=== PATIENT | female | born 1955 | race Caucasian/White ===

== ENCOUNTER 2022-08-22 18:32 | Outpatient (REF) | payer OTHER, SELFPAY ==
[2022-08-22 15:30] LABS: HCT 39.7 % (36.0-46.0); MCH 33.9 pg (27.0-33.0); MCHC 32.7 % (32.0-36.0); MCV 104 fL (80-95); MPV 11.5 fL (8.0-11.0); Platelet Count 217 10^3/uL (130-400); RBC 3.83 10^6/uL (3.93-5.22); RDW 11.3 % (11.7-14.6); RDW-SD 43.2 fL; WBC 5.11 10^3/uL (4.4-10.8)
[2022-08-22 15:44] LABS: ALT 41 U/L (14-59); AST 34 U/L (15-37); Albumin 3.8 g/dL (3.4-5.0); Alkaline Phosphatase 111 U/L (46-116); Anion Gap 5.1 mmol/L (3-11); BUN 15 mg/dL (7-18); Bilirubin, Total 0.5 mg/dL (0.2-1.0); CO2 30.9 mmol/L (21.0-32.0); CREATININE 0.7 mg/dL (0.55-1.02); Calcium 9.2 mg/dL (8.5-10.1); Calculated LDL 145 mg/dL (<100); Chloride 105 mmol/L (98-107); Cholesterol 242 mg/dL (<200); Estimated GFR 94.15 (mL/min/1.73m2); Glucose 89 mg/dL (74-106); HDL Cholesterol 91 mg/dL (40-60); Potassium 4.2 mmol/L (3.5-5.1); Sodium 141 mmol/L (136-145); Total Protein 6.5 g/dL (6.4-8.2); Triglyceride 34 mg/dL (<150)
[2022-08-22 17:21] LABS: Iron 77 ug/dL (50-170); Total Iron Binding Capacity 396 ug/dL (250-450); Transferrin Sat 19 % (15-50)
== END 2022-08-22 18:33 | disposition home or self-care (01) ==
LOC: NCHCN 18:32
PROVIDERS: Visit Provider Nurse Practitioner Family
DX: Z13.220 Encounter for screening for lipoid disorders (principal); E61.1 Iron deficiency; R51.9 Headache, unspecified
CPT/HCPCS: 80053; 80061; 85027; 83540; 83550

== ENCOUNTER 2022-10-09 15:21 | Inpatient (IN) | payer MEDICARE, OTHER, SELFPAY ==
[2022-10-09 15:20] VITALS: BP 115/60; PULSE 71; RESP 20; O2SAT 98
--- NOTE | 2022-10-09 15:30 | DI.RAD_ITS ---
Exam(s) XR CHEST 1V IN DI DEPT EXAM: XR CHEST 1V IN DI DEPT CLINICAL HISTORY: fall TECHNIQUE: 2D digital imaging was performed. COMPARISON: No exams were available for comparison FINDINGS: LUNGS: Clear. No pleural abnormality seen. HEART: Normal size. AORTA: Normal diameter. BONES: Unremarkable for age. Soft tissues: Unremarkable. IMPRESSION: No acute findings. DATA REPOSITORY: RADIATION DOSE DELIVERED:
--- NOTE | 2022-10-09 15:30 | DI.RAD_ITS ---
Exam(s) XR FEMUR RT XR HIP RT COMPLETE AP PELVIS EXAM: XR FEMUR RT CLINICAL HISTORY: fall, pain. TECHNIQUE: 2D digital imaging was performed. AP pelvis. AP and lateral views right hip and right f emur. COMPARISON: CR XR HIP RT COMPLETE AP PELVIS from 10/09/2022 FINDINGS: Subcapital fracture of the right femur with some impaction and angulation. No additional fractures i n the right femur or pelvis. Hip joint spaces are maintained. SI joints and pubic symphysis not wid ened. Sacrum obscured by overlying bowel gas and stool. IMPRESSION: Subcapital fracture of the right femur. DATA REPOSITORY: RADIATION DOSE DELIVERED:
--- NOTE | 2022-10-09 15:37 | W.ED.GENAD ---
Discharge Plan Disposition Patient Disposition: Admit to [facility] Condition: Stable Discharge Details Chief Complaint: Orthopedic Clinical Impression: Fracture of right hip Primary Care Provider: Unknown,Unknown ED Provider: Mack Devries Home Meds and New Rx's Prescriptions: No Action Heidi 30 mg Tablet 30 mg PO DAILY cholecalciferol (vitamin D3) [Vitamin D3] 25 mcg (1,000 unit) Capsule 50 mcg PO DAILY escitalopram oxalate 10 mg tablet 10 tab PO DAILY Medical Decision Making 67 yo female who denies chronic medical problems comes in with ems after a fall and right hip pain. She states she was feeling well today and was walking in her house and slipped on a wet area landing on her right hip. Denies preceding symptoms such as chest pain, dyspnea, lightheadedness, and denies hitting her head or loc from the fall. She had severe pain in the right hip and so ems was called. She arrives stable, caox4 speaking clearly. She has pain over the right lateral hip with no ability to move it due to pain. No tenderness of the knee, tib,fib, ankle or foot with intact distal sensation and pulses. Suspect hip fracture, will obtain screening labs, ekg and xrays to further evaluate. pt stable and xray confirms right hip fracture. Discussed with Dr. Cummings who accepts for admission Differential Diagnosis Differential Diagnosis: fracture, contusion Imaging Data Radiologic Study: Attestation: I personally reviewed and interpreted this imaging study as follows: Imaging: X-Ray Radiologist's impression: no acute findings on cxr Radiologic Study #2: Attestation: I personally reviewed and interpreted this imaging study as follows: Imaging: X-Ray Radiologist's impression: PROCEDURE INFORMATION: Exam: XR Right Hip Exam date and time: 10/09/2022 4:33 PM Age: 67 years old Clinical indication: Other: Fall pain TECHNIQUE: Imaging protocol: Radiologic exam of the Right hip. Views: 2 or 3 views hip with pelvis when performed. COMPARISON: No relevant prior studies available. FINDINGS: Bones/joints: There is a subcapital femoral neck fracture involving the right hip. Lateral femoral neck is impacted into the femoral head. Soft tissues: Unremarkable. IMPRESSION: There is a subcapital femoral neck fracture involving the right hip. Lateral femoral neck is impacted into the femoral head. Radiologic Study #3: Attestation: I personally reviewed and interpreted this imaging study as follows: Imaging: X-Ray Radiologist's impression: PROCEDURE INFORMATION: Exam: XR Right Femur Exam date and time: 10/09/2022 4:37 PM Age: 67 years old Clinical indication: Other: Fall pain TECHNIQUE: Imaging protocol: Radiologic exam of the Right femur. Views: 2 views. COMPARISON: CR XR HIP RT COMPLETE AP PELVIS 10/09/2022 4:33 PM FINDINGS: Bones/joints: Subcapital femoral neck fracture of the right hip is impacted and displaced. Soft tissues: Soft tissue swelling of the right hip IMPRESSION: Subcapital femoral neck fracture of the right hip is impacted and displaced. Lab Data Lab results reviewed: Yes I reviewed the patient's lab results. HPI General Mode of arrival: EMS. Date/Time Provider Initiated Documentation: 10/09/22 15:27. Limitations to Documentation: no limitations. Information obtained by: patient. History of Present Illness 67 year old F presents to the emergency department with the chief complaint of right hip pain, described as moderate, Quality is described as aching, Patient reports no radiation. Patient started experiencing this hour(s) (1) and it has been constant. Rest improves symptom(s), Movement worsens symptoms . Patient did receive the following treatments prior to arrival, none Related Data Home Medications Medication Instructions Recorded Confirmed cholecalciferol (vitamin D3) 25 50 mcg PO DAILY 10/09/22 10/09/22 mcg (1,000 unit) capsule (Vitamin D3) escitalopram oxalate 10 mg tablet 10 tab PO DAILY 10/09/22 10/09/22 fexofenadine 30 mg tablet 30 mg PO DAILY 10/09/22 10/09/22 Allergies Allergy/AdvReac Type Severity Reaction Status Date / Time No Known Allergies Allergy Unverified 10/09/22 16:23 General Stated Complaint: Orthopedic KYAW: 3 Review of Systems All systems reviewed & are unremarkable except as noted in HPI and below Constitutional Constitutional: Denies chills, Denies fever(s) and Denies weakness Eyes Eyes: Denies loss of vision ENT Ears, Nose, Mouth, and Throat: Denies change in voice Cardiovascular Cardiovascular: Denies chest pain and Denies dyspnea Respiratory Respiratory: Denies cough and Denies dyspnea Gastrointestinal Gastrointestinal: Denies abdominal pain, Denies nausea and Denies vomiting Integumentary/Breasts Skin/Breast: Denies rash Neurologic Neurologic: Denies loss of vision and Denies weakness PFSH All Active Problems (Updated 10/09/22 @ 17:21 by Mack Devries MD) Fracture of right hip (Acute) Social History Smoking/Tobacco Use Status: Former Tobacco Use Quit Date: 10/08/22 Smoking risk assessment performed?: Yes Drug use: Never Substance use type: does not use Do you feel safe at home: Yes Do you feel safe in your relationship?: Yes Exam Const General: no acute distress Orientation: alert HENMT Head: normal to inspection Ears: external ears normal General nose exam: external nose normal Mouth: moist mucous membranes Eyes General: appearance normal, both eyes and all related structures Neck Neck: normal visual inspection Resp Effort & Inspection: normal respiratory effort and able to speak in complete sentences Cardio Rate: regular rate GI Palpation: soft and nontender Skin General skin exam: no rashes or lesions noted Neuro General: patient alert and patient oriented x3 Extrem General: abnormal ROM Psych Mental Status: mental status grossly normal Course Vital Signs Vital signs: Vital Signs Pulse 71 10/09/22 15:20 Respiratory Rate 20 10/09/22 15:20 Blood Pressure 115/60 10/09/22 15:20 Pulse Oximetry 98 10/09/22 15:20 Pulse 71 10/09/22 15:20 Respiratory Rate 20 10/09/22 15:20 Blood Pressure 115/60 10/09/22 15:20 Blood Pressure Position Sitting 10/09/22 15:20 Pulse Oximetry 98 10/09/22 15:20 Oxygen Delivery Method Room Air 10/09/22 15:20 Oxygen Flow Rate 0 10/09/22 15:20 Pain Level 5 10/09/22 15:20
[2022-10-09 15:51] LABS: Source Nasal/Nares
[2022-10-09 16:13] LABS: Abs Immature Grans 0.02 10^3/uL (0.0-0.06); Absolute Basophil Count 0.04 10^3/uL (0.0-0.2); Absolute Lymphocyte Count 1.13 10^3/uL (1.2-3.4); Absolute Monocyte Count 0.35 10^3/uL (0.1-0.8); Absolute Neutrophil Count 4.88 10^3/uL (1.2-6.7); Basophils % 0.6; Eosinophils % 7.2; HGB 13.3 g/dL (11.2-15.7); Immature Grans % 0.3; Lymphocytes % 16.3; MCH 33.1 pg (27.0-33.0); MCHC 33.3 % (32.0-36.0); MCV 100 fL (80-95); MPV 10.5 fL (8.0-11.0); Monocytes % 5.1; Neutrophils % 70.5; Platelet Count 222 10^3/uL (130-400); RBC 4.02 10^6/uL (3.93-5.22); RDW 11.9 % (11.7-14.6); RDW-SD 43.3 fL; WBC 6.92 10^3/uL (4.4-10.8)
[2022-10-09] MEDS: HYDROmorphone 2 MG/ML SYR 1 MG IVP ×2 (16:13→22:04)
[2022-10-09 16:23] LABS: COVID-19 PCR Negative (Negative)
[2022-10-09 16:32] LABS: Magnesium 2.3 mg/dL (1.8-2.4)
[2022-10-09 16:35] LABS: ALT 34 U/L (14-59); AST 27 U/L (15-37); Alkaline Phosphatase 117 U/L (46-116); Anion Gap 7.1 mmol/L (3-11); BUN 17 mg/dL (7-18); Bilirubin, Total 0.5 mg/dL (0.2-1.0); CO2 27.9 mmol/L (21.0-32.0); CREATININE 0.7 mg/dL (0.55-1.02); Chloride 104 mmol/L (98-107); Estimated GFR 94.15 (mL/min/1.73m2); Glucose 102 mg/dL (74-106); Potassium 4.1 mmol/L (3.5-5.1); Sodium 139 mmol/L (136-145); Troponin I < 50 ng/L (<or=60)
--- NOTE | 2022-10-09 17:01 | DI.VRAD_ITS ---
PROCEDURE INFORMATION: Exam: XR Right Hip Exam date and time: 10/09/2022 4:33 PM Age: 67 years old Clinical indication: Other: Fall pain TECHNIQUE: Imaging protocol: Radiologic exam of the Right hip. Views: 2 or 3 views hip with pelvis when performed. COMPARISON: No relevant prior studies available. FINDINGS: Bones/joints: There is a subcapital femoral neck fracture involving the right hip. Lateral femoral neck is impacted into the femoral head. Soft tissues: Unremarkable. IMPRESSION: There is a subcapital femoral neck fracture involving the right hip. Lateral femoral neck is impacted into the femoral head. Dictated and Authenticated by: Shar Kaiser MD. Ordering:JERAMY Giron MD
--- NOTE | 2022-10-09 17:01 | DI.VRAD_ITS ---
PROCEDURE INFORMATION: Exam: XR Chest Exam date and time: 10/09/2022 4:51 PM Age: 67 years old Clinical indication: Other: Fall pain TECHNIQUE: Imaging protocol: Radiologic exam of the chest. Views: 1 view. COMPARISON: No relevant prior studies available. FINDINGS: Tubes, catheters and devices: Surgical device in the right humeral head Lungs: Unremarkable. No consolidation. Pleural spaces: Unremarkable. No pleural effusion. No pneumothorax. Heart/Mediastinum: Unremarkable. No cardiomegaly. Bones/joints: Unremarkable. IMPRESSION: No acute process Dictated and Authenticated by: Shar Kaiser MD. Ordering:JERAMY Giron MD
--- NOTE | 2022-10-09 17:02 | DI.VRAD_ITS ---
PROCEDURE INFORMATION: Exam: XR Right Femur Exam date and time: 10/09/2022 4:37 PM Age: 67 years old Clinical indication: Other: Fall pain TECHNIQUE: Imaging protocol: Radiologic exam of the Right femur. Views: 2 views. COMPARISON: CR XR HIP RT COMPLETE AP PELVIS 10/09/2022 4:33 PM FINDINGS: Bones/joints: Subcapital femoral neck fracture of the right hip is impacted and displaced. Soft tissues: Soft tissue swelling of the right hip IMPRESSION: Subcapital femoral neck fracture of the right hip is impacted and displaced. Dictated and Authenticated by: Shar Kaiser MD. Ordering:JERAMY Giron MD
[2022-10-09] MEDS: Ketorolac 15 MG/ML VIAL IVP ×2 (18:14→23:18)
[2022-10-09 18:16] VITALS: BP 100/56; PULSE 61; RESP 16; O2SAT 97
[2022-10-09 18:35] VITALS: BP 100/52; PULSE 69; O2SAT 97
[2022-10-09 18:45] VITALS: TEMP 37.3
[2022-10-09] MEDS: oxyCODONE 5 MG TAB PO (18:58)
[2022-10-10] VITALS (15 sets, daily range): BP systolic 79–100; BP diastolic 45–82; PULSE 55–79; RESP 12–19; TEMP 36.3–37.6; O2SAT 92–100; BMI 19.7
[2022-10-10] MEDS: HYDROmorphone 2 MG/ML SYR 1 MG IVP (01:17)
--- NOTE | 2022-10-10 06:45 | W.ORTHOCONSU ---
Date of service: 10/10/22 Time of Service: 06:35 History of Present Illness History of Present Illness Chief Complaint: Right Hip Pain Narrative: Desirae is a 67-year-old active female who slipped on a wet floor at home falling onto her right side. She had immediate pain was unable to ambulate. She is brought to the emergency department and diagnosed with a displaced subcapital femoral neck fracture. I was called in consultation. Given her active lifestyle I recommend operative fixation she was admitted to the medical surgical floor for pain control overnight with operative fixation in the morning. She currently has pain with motion. In her current position she is relatively comfortable. She has required pain medication overnight. She did have some cramping early on but this has improved. She has been able to use the bedpan. She denies any preceding lightheadedness, dizziness, or syncope. She has no active cardiac or pulmonary medical history. Consults Consult date: 10/09/22 Requesting physician: Mack Devries Consult Reason Right hip fracture Assessment and Plan Assessment and plan (1) Subcapital fracture of neck of right femur: Status: Acute Assessment and plan: Desirae is a 67-year-old active female who suffered a fall onto the right side resulting in a displaced subcapital femoral neck fracture. Given her active lifestyle and young age I recommend we proceed with hip replacement. This would treat the fracture would also allow immediate mobilization. Current literature would support this treatment versus reduction and internal fixation or other arthroplasty. I had a long discussion in regards to surgical replacement of the hip. I also explained the necessary time for rehabilitation following the procedure. Furthermore, I went over in detail the possible complications of hip replacement. These include but are not limited to bleeding, infection, pain, stiffness, weakness, damage to nerves (especially the lateral femoral cutaneous nerve), damage to vessels, damage to muscle and tendon, fracture, leg length inequality, wound healing complications, instability, dislocation, and blood clot. Questions were answered. After a review of the presented information and risks, Desirae desired to proceed. She will remain NPO. Ketorolac, hydromorphone, and oxycodone for pain relief. We will proceed with mobilization after the surgery with hopeful discharge to home later today or tomorrow. Review of Systems All systems reviewed & are unremarkable except as noted in HPI and below PFSH All Active Problems (Updated 10/10/22 @ 07:51 by Adam Cummings MD) Subcapital fracture of neck of right femur (Acute) Social History Smoking/Tobacco Use Status: Former Tobacco Use Quit Date: 10/08/22 Smoking risk assessment performed?: Yes Drug use: Never Substance use type: does not use Do you feel safe at home: Yes Do you feel safe in your relationship?: Yes Exam Narrative Exam Narrative: Sitting up in the hospital bed. No acute distress. Alert and orient x3. Evaluation of the right lower extremity shows mild external rotation of the right leg. There is some swelling seen about the right thigh. No ecchymosis. No breaks in the skin. Sensation intact light touch of the deep and superficial peroneal nerve and tibial nerve. She is able to actively extend and flex the toe as well as the ankle. Further testing was not performed. Per Dr. Devries in the emergency department her lungs are clear to auscultation bilaterally and her heart rate and rhythm is regular Results Last Vital Signs Temp 37.3 C 10/09/22 18:45 Pulse 69 10/09/22 18:35 Resp 16 10/09/22 18:16 BP 100/52 L 10/09/22 18:35 Pulse Ox 97 10/09/22 18:35 Labs Result diagrams: 10/09/22 16:05 10/09/22 16:05 Labs: Laboratory Results - last 24 hr 10/09/22 10/09/22 10/09/22 15:43 16:05 16:05 WBC RBC Hgb Hct MCV MCH MCHC RDW Plt Count MPV Immature Gran % Neutrophils % Lymphocytes % Monocytes % Eosinophils % Basophils % Nucleated RBC % Absolute Neutrophils Absolute Lymphocytes Absolute Monocytes Absolute Eosinophils Absolute Basophils Sodium 139 Potassium 4.1 Chloride 104 Carbon Dioxide 27.9 Anion Gap 7.1 BUN 17 Creatinine 0.7 Est GFR (CKD-EPI 2020) 94.15 Glucose 102 Calcium 9.0 Magnesium 2.3 Total Bilirubin 0.5 AST 27 ALT 34 Alkaline Phosphatase 117 H Troponin I < 50 Total Protein 7.0 Albumin 4.0 COVID-19 Source Nasal/Nares SARS-CoV-2 (PCR) Negative Patient ABO/Rh Antibody Screen 10/09/22 10/09/22 16:05 16:05 WBC 6.92 RBC 4.02 Hgb 13.3 Hct 40.0 MCV 100 H MCH 33.1 H MCHC 33.3 RDW 11.9 Plt Count 222 MPV 10.5 Immature Gran % 0.3 Neutrophils % 70.5 Lymphocytes % 16.3 Monocytes % 5.1 Eosinophils % 7.2 Basophils % 0.6 Nucleated RBC % 0.0 Absolute Neutrophils 4.88 Absolute Lymphocytes 1.13 L Absolute Monocytes 0.35 Absolute Eosinophils 0.50 Absolute Basophils 0.04 Sodium Potassium Chloride Carbon Dioxide Anion Gap BUN Creatinine Est GFR (CKD-EPI 2020) Glucose Calcium Magnesium Total Bilirubin AST ALT Alkaline Phosphatase Troponin I Total Protein Albumin COVID-19 Source SARS-CoV-2 (PCR) Patient ABO/Rh O Positive Antibody Screen NEGATIVE Imaging Imaging Studies: X-ray of the right hip and pelvis shows a displaced subcapital femoral neck fracture. There is some shortening, valgus orientation and posterior displacement. No other suspicious lesions are identified.
[2022-10-10] MEDS: Ketorolac 15 MG/ML VIAL IVP ×2 (07:32→17:31)
--- NOTE | 2022-10-10 08:46 | PDOC.CMIN ---
- If Service Date Differs Date of service: 10/10/22 Time of Service: 08:47 Care Management Initial Assess REASON FOR HOSPITALIZATION:: Subcapital fracture of neck of right femur PAST MEDICAL HISTORY/PAST SURGICAL HISTORY:: All Active Problems (Updated 10/09/22 @ 17:21 by Mack Devries MD). Fracture of right hip (Acute) ADVANCE DIRECTIVES:: None on file at [facility] Has patient been provided with info about the portal/API?: Yes Did the patient sign up for the portal?: No CODE STATUS:: Full Code INSURANCE COVERAGE / FINANCIAL ISSUES:: [employer]. CMR/[employer] POTENTIAL DISCHARGE NEEDS:: Follow up appointment with PCP, ortho and discharge plan of care. PATIENT/FAMILY EDUCATION NEEDS:: Review discharge instructions, limitations, medications and plan to follow up with community providers. Discuss ask me three and goals of self care. TRANSPORTATION:: Via private vehicle with . PLAN:: Anticipate Desirae will discharge home via private vehicle with family when medically ready per Ortho. She will follow up with community providers and discharge plan of care as prescribed.
--- NOTE | 2022-10-10 09:59 | ANES.PREOP_ITS ---
General Info Date of Service Date Performed: 10/10/22 Height: 5 ft 10 in Weight: 62.4 kg Body Mass Index (BMI): 19.7 Surgical Procedure: Operation Date: 10/10/22 11:20 Proposed Procedure Side Surgeon p Hip Total Hip Anterior, Bimentum Right Adam Cummings MD Meds Allergies and Home Medications Allergies Allergy/AdvReac Type Severity Reaction Status Date / Time No Known Allergies Allergy Unverified 10/09/22 16:23 Home Medication Medication Instructions Recorded cholecalciferol (vitamin D3) 25 50 mcg PO DAILY 10/09/22 mcg (1,000 unit) capsule (Vitamin D3) escitalopram oxalate 10 mg tablet 10 tab PO DAILY 10/09/22 fexofenadine 30 mg tablet 30 mg PO DAILY 10/09/22 Current Visit Medications: Current Medications Generic Name Dose Route Start Last Admin Trade Name Freq PRN Reason Stop Dose Admin Acetaminophen 1,000 mg 10/09/22 17:24 Acetaminophen 500 Mg Tab PO Q6H PRN PRN Cyclobenzaprine HCl 10 mg 10/09/22 20:04 Cyclobenzaprine 10 Mg Tab PO TID PRN PRN Escitalopram Oxalate 10 mg 10/10/22 08:30 10/10/22 08:57 Escitalopram 10 Mg Tab PO Not Given DAILY FRANCISCO Hydromorphone HCl 1 mg 10/09/22 17:29 10/10/22 01:17 Hydromorphone 2 Mg/Ml Syr IVP 1 mg Q2H PRN Administration Ondansetron HCl 4 mg/ Sodium 52 mls @ 200 mls/hr 10/09/22 17:24 Chloride IVPB Q6H PRN PRN Ringer's Solution 1,000 mls @ 80 mls/hr 10/10/22 07:30 IV INFUSION FRANCISCO Cefazolin Sodium/Dextrose 2 gm in 50 mls @ 100 mls/hr 10/10/22 07:30 Ancef Duplex IVPB 10/10/22 16:00 PREOP FRANCISCO Tranexamic Acid 1,000 mg/ 60 mls @ 360 mls/hr 10/10/22 07:30 Sodium Chloride IVPB 10/10/22 18:00 PREOP FRANCISCO IV Miscellaneous Supplies 1 each 10/09/22 15:45 Iv Access IV DIRECTED FRANCISCO Ketorolac Tromethamine 15 mg 10/09/22 18:00 10/10/22 07:32 Ketorolac 15 Mg/Ml Vial IVP 10/14/22 17:59 15 mg Q6H FRANCISCO Administration Oxycodone HCl 0 mg 10/09/22 17:24 10/09/22 18:58 Oxycodone 5 Mg Tab PO 5 mg Q3H PRN PRN Administration Pain Patient's Own 1 each 10/10/22 08:30 10/10/22 08:57 Medication ( PO Not Given Fexofenadine 30 Mg DAILY FRANCISCO Tablet) Sodium Chloride 0 ml 10/09/22 15:36 Normal Saline Flush 10 Ml Syr IVP PRN PRN PFSH Active Problems Active Problems: Problem Status Onset Code Subcapital fracture of neck of right femur S72.011A Tobacco Smoking/Tobacco Use Status: Former Tobacco Use Substance Use Substance use: Never Substance use type: does not use Vital Signs and Lab Results Vital Signs Most Recent Vital Signs in EMR: Most Recent Vital Signs Temp Pulse Resp BP Pulse Ox 37.3 C 64 16 88/51 L 100 10/09/22 18:45 10/10/22 08:52 10/09/22 18:16 10/10/22 08:52 10/10/22 08:52 Lab Results Result Diagrams: 10/09/22 16:05 10/09/22 16:05 Blood Type / Crossmatch: Patient ABO/Rh O Positive 10/09/22 Antibody Screen NEGATIVE 10/09/22 Complete Blood Count: White Blood Count 6.92 10^3/uL (4.4-10.8) 10/09/22 16:05 Red Blood Count 4.02 10^6/uL (3.93-5.22) 10/09/22 16:05 Hemoglobin 13.3 g/dL (11.2-15.7) 10/09/22 16:05 Hematocrit 40.0 % (36.0-46.0) 10/09/22 16:05 Platelet Count 222 10^3/uL (130-400) 10/09/22 16:05 Complete Metabolic Panel: Sodium 139 mmol/L (136-145) 10/09/22 16:05 Potassium 4.1 mmol/L (3.5-5.1) 10/09/22 16:05 Chloride 104 mmol/L (98-107) 10/09/22 16:05 Carbon Dioxide 27.9 mmol/L (21.0-32.0) 10/09/22 16:05 BUN 17 mg/dL (7-18) 10/09/22 16:05 Creatinine 0.7 mg/dL (0.55-1.02) 10/09/22 16:05 Est GFR (CKD-EPI 2020) 94.15 (mL/min/1.73m2) 10/09/22 16:05 Magnesium 2.3 mg/dL (1.8-2.4) 10/09/22 16:05 Calcium 9.0 mg/dL (8.5-10.1) 10/09/22 16:05 Albumin 4.0 g/dL (3.4-5.0) 10/09/22 16:05 Glucose 102 mg/dL (74-106) 10/09/22 16:05 Liver Function Panel: Alanine Aminotransferase (ALT/SGPT) 34 U/L (14-59) 10/09/22 16: 05 Aspartate Amino Transf (AST/SGOT) 27 U/L (15-37) 10/09/22 16:05 Coagulation Panel: No Data to Display Cardiac Panel: Troponin I < 50 ng/L (<or=60) 10/09/22 Arterial Blood Gas: No Data to Display Venous Blood Gas: No Data to Display Pancreas Panel: No Data to Display Thyroid Panel: No Data to Display Infectious Disease: Coronavirus (COVID-19)(PCR) Negative (Negative) 10/09/22 15:43 Coronavirus 2019 Source Nasal/Nares 10/09/22 15:43 Blood Cultures: No Data to Display Toxicology Panel: No Data to Display Anesthesia Assessment and Plan Anesthesia History Personal History: No History of Anesthesia Complications Family History: No Family History of Anesthesia Complications Exercise Tolerance Exercise Tolerance: Metabolic Equivalents>4 Pertinent Negatives Pertinent Negatives: No Symptoms of GERD, No Major Cardiovascular Symptoms or Complaints and Other (Hx of MICA) Cardiac & Pulmonary Exam Cardiac Exam: Normal S1/S2 Heart Sounds Pulmonary Exam: Clear Bilateral Breath Sounds Implantable Cardiac Device Does patient have a Pacemaker or an ICD?: No Airway Exam Known Difficult Airway: No Mallampati Class: 2 Mouth Opening: Normal (> 3cm) Thyromental Distance: Greater than 3 cm Neck Range of Motion: Full ROM Neck Circumference: Normal Teeth Condition: Normal Dentition ASA Classification ASA Score: ASA 2 Emergency Case?: No NPO Status NPO Status: NPO Clears >2 hours, Solids >8 hours Anesthesia Plan Resuscitation Status: Full Code Anesthesia Technique: General Anesthesia Airway Planned: Endotracheal Tube Monitors Used: Standard Monitors
[2022-10-10] MEDS: Lactated Ringers 1,000 ML 80 ML IV (11:40)
[2022-10-10] MEDS: ceFAZolin 2 GM/50 ML BAG IVPB (11:52)
--- NOTE | 2022-10-10 13:18 | DI.RAD_ITS ---
Exam(s) XR HIP RT IN OR EXAM: XR HIP RT IN OR CLINICAL HISTORY: FEMORAL NECK FRACTURE TECHNIQUE: 2D and realtime digital imaging was performed. CONTRAST MATERIAL: Refer to procedure report. COMPARISON: No exams were available for comparison FINDINGS: Fluoroscopy was provided for Dr. Cummings during the performance of a right total hip replacement. Please refer to the procedure report for complete details. Ka,r=5.1 mGy IMPRESSION: RADIATION DOSE DELIVERED:
--- NOTE | 2022-10-10 13:58 | DSE_ITS ---
Date of service: 10/10/22 Time of Service: 17:21 DS: Diagnosis Discharge Diagnosis (1) Subcapital fracture of neck of right femur: Status: Acute Discharge Plan Disposition Patient Disposition: Home Condition: Good Discharge Details Reason For Visit: Right Femoral Neck Fracture Admit Date/Time: 10/09/22 17:24 Admit Provider: Adam Cummings Attending Provider: Adam Cummings Primary Care Provider: Unknown,Unknown Hospital Course Hospital Course: Desirae was admitted to the med/surg floor for pain control and preoperative management on HD#1. On HD#2, she was taken to the operating room for a total hip arthroplasty for femoral neck fracture. Patient went back to medical/surgical floor following the procedure. The surgery was tolerated well without any notable medical, surgical, or anesthetic complications. Mobilization began postoperatively. She was voiding spontaneously. Vitals were stable. Physical therapy worked with the patient and was cleared for discharge home. No acute medical issues. Pain was controlled on oral regimen. Home Meds and New Rx's Prescriptions: New acetaminophen 500 mg tablet 500 mg PO Q6H PRN (Reason: pain) Qty: 60 2RF aspirin 81 mg tablet,delayed release (DR/EC) 81 mg PO BID 30 Days Qty: 60 0RF celecoxib [Celebrex] 200 mg capsule 200 mg PO BID Qty: 30 0RF docusate sodium [Colace] 100 mg capsule 100 mg PO BID Qty: 30 0RF pantoprazole 40 mg tablet,delayed release (DR/EC) 40 mg PO DAILY 14 Days Qty: 14 0RF dexamethasone 4 mg tablet 4 mg PO DAILY Qty: 2 0RF Rx Instructions: Take one tablet once daily for two days oxycodone 5 mg tablet 5 mg PO Q6H PRN (Reason: severe post-operative pain) Qty: 12 0RF Rx Instructions: Take one tablet up to every 6 hours as needed for severe pain Continued fexofenadine 30 mg Tablet 30 mg PO DAILY cholecalciferol (vitamin D3) [Vitamin D3] 25 mcg (1,000 unit) Capsule 50 mcg PO DAILY escitalopram oxalate 10 mg tablet 10 tab PO DAILY Discharge Instructions Instructions: Total Hip Discharge Instructions Additional Instructions: Total Hip Discharge Instructions Activity: The most important activity is to walk. You should try to take short walks a few times a day. You have no restrictions on movement or positioning, but do not try to force what you do. You will find some stiffness and weakness with hip flexion (lifting your knee). Do not try to strengthen this too early, continue to practice walking and stairs and this will come. - Outpatient physical therapy can be helpful to help return you to a normal gait and improve your flexibility and strength. This can start around 2 weeks. For some patients, it?s not necessary. Usually this is determined at the time of discharge or at the first post-operative visit. - You should wear the ANGELLA hose on both legs for 2 weeks. Dressing: Keep the surgical dressing in place for at least one week. After the first week it may be removed and replace with light gauze and tape or nothing. It may get wet after 3 days but avoid soaking the dressing. If it gets wet, just lightly pat dry. It is important to always keep some gauze between skin folds, especially when you are sitting. Spend some time with the wound exposed when you are lying flat as the incision does wrinkle onto itself. Medications: - You should take Tylenol and an anti-inflammatory Celebrex as your primary pain control medications. If the Celebrex is too expensive or not covered, please call the office for another alternative (Advil/Ibuprofen or Naproxen/Aleve). - You have been prescribed a stronger pain medication Oxycodone for breakthrough pain, take as needed as prescribed. - You have also been prescribed a stomach acid reduction agent Pantoprozole to help reduce stomach acid and reflux. - You have also been prescribed Decadron to help with post-operative nausea and pain. You will take this for two days starting tomorrow. - You will be taking Aspirin 81mg twice a day for DVT prevention unless instructed otherwise. - If you have constipation you should take Colace (which has been prescribed) or Miralax (which is available [id number]). It takes most people 3-4 days to have a bowel movement. Follow-up: 2 weeks If you have any acute concerns or questions, please do not hesitate to contact the office at [phone]. You may contact Dr. Cummings with any questions after hours through the hospital at [phone] or on his cell phone at [phone]. Stand Alone Forms: Nursing Discharge Form Referrals: Adam Cummings MD [ [facility] STAFF PHYSICIAN] - 10/23/22 2:45 pm Activity:: Activity as Tolerated Equipment/Supplies:: No Equipment Needed Diet:: As Tolerated Discharge Orders Discharge Orders: Discharge Order (Routine); Ordered 10/10/22 Ordered By: Adam Cummings DS: Summary Time Spent with Patient providing and/or coordinating discharge services: Less than 30 minutes Status at Discharge Functional status at discharge: uses cane/walker Overall status at discharge: patient is progressing back to baseline Mental Status: mental status grossly normal Speech and Movement: speech and movement normal Mood: congruent mood Affect: normal affect Exam Narrative Exam Narrative: Sitting up on the edge of the bed. RLE is normally positioned. Dressing c/d/i. +ADF/APF/EHL/FHL. SILT DP/SP/Tib. Psych Mental Status: mental status grossly normal Speech and Movement: speech and movement normal Mood: congruent mood Affect: normal affect DS: Data Vitals/I&O Vitals and I&O: Vital Signs Temperature 99.1 F 10/09/22 18:45 Temperature Source Temporal Artery Scan 10/09/22 18:45 Pulse 64 10/10/22 08:52 Pulse Rhythm Regular 10/10/22 08:30 Respiratory Rate 16 10/09/22 18:16 Respiratory Effort Non-Labored 10/10/22 08:30 Respiratory Depth Normal 10/10/22 08:30 Respiratory Pattern Normal 10/10/22 08:30 Blood Pressure 88/51 L 10/10/22 08:52 Blood Pressure Mean 61 10/10/22 08:52 Blood Pressure Position Supine 10/09/22 18:45 Pulse Oximetry 100 10/10/22 08:52 Oxygen Delivery Method Room Air 10/09/22 18:45 Oxygen Flow Rate 0 10/09/22 18:45 Pain Level 3 10/10/22 08:30 Intake & Output 10/09/22 10/10/22 10/10/22 23:59 11:59 23:59 Intake Total 510 / 520 Output Total 1075 / 1475 400 / 1475 Balance -1065 / -955 110 / -955 Weight 137 lb 9.095 oz 137 lb 9.095 oz Intake: IV 510 / 520 Output: Urine 1075 / 1075 Estimated Blood Loss 400 / 400 Other: Urine Color Yellow Urine Appearance Clear Urine Odor None Comment STRAIGHT CATH PRIOR TO SURGERY Voiding Methods Bedpan Data Completed and Pending Labs on day of discharge: Labs from last 24 hours 10/09/22 10/09/22 10/09/22 16:05 16:05 16:05 WBC 6.92 RBC 4.02 Hgb 13.3 Hct 40.0 MCV 100 H MCH 33.1 H MCHC 33.3 RDW 11.9 Plt Count 222 MPV 10.5 Immature Gran % 0.3 Neutrophils % 70.5 Lymphocytes % 16.3 Monocytes % 5.1 Eosinophils % 7.2 Basophils % 0.6 Nucleated RBC % 0.0 Absolute Neutrophils 4.88 Absolute Lymphocytes 1.13 L Absolute Monocytes 0.35 Absolute Eosinophils 0.50 Absolute Basophils 0.04 Sodium Potassium Chloride Carbon Dioxide Anion Gap BUN Creatinine Est GFR (CKD-EPI 2020) Glucose Calcium Magnesium 2.3 Total Bilirubin AST ALT Alkaline Phosphatase Troponin I Total Protein Albumin COVID-19 Source SARS-CoV-2 (PCR) Patient ABO/Rh O Positive Antibody Screen NEGATIVE 10/09/22 10/09/22 16:05 15:43 WBC RBC Hgb Hct MCV MCH MCHC RDW Plt Count MPV Immature Gran % Neutrophils % Lymphocytes % Monocytes % Eosinophils % Basophils % Nucleated RBC % Absolute Neutrophils Absolute Lymphocytes Absolute Monocytes Absolute Eosinophils Absolute Basophils Sodium 139 Potassium 4.1 Chloride 104 Carbon Dioxide 27.9 Anion Gap 7.1 BUN 17 Creatinine 0.7 Est GFR (CKD-EPI 2020) 94.15 Glucose 102 Calcium 9.0 Magnesium Total Bilirubin 0.5 AST 27 ALT 34 Alkaline Phosphatase 117 H Troponin I < 50 Total Protein 7.0 Albumin 4.0 COVID-19 Source Nasal/Nares SARS-CoV-2 (PCR) Negative Patient ABO/Rh Antibody Screen [facility] All Active Problems Subcapital fracture of neck of right femur (Acute) Social History Smoking/Tobacco Use Status: Former Tobacco Use Quit Date: 10/08/22 Smoking risk assessment performed?: Yes Drug use: Never Substance use type: does not use Do you feel safe at home: Yes Do you feel safe in your relationship?: Yes Time Spent with Patient Time Spent with Patient: <45 minutes Time was spent: preparing to see the patient(eg.review tests), counseling the patient and care coordination
--- NOTE | 2022-10-10 14:09 | PDOC.CMDIS ---
- If Service Date Differs Date of service: 10/10/22 Time of Service: 14:09 LACE Index Scoring Tool - Questions: Length of Stay (in days): 1 Acuity (Admit via E.D.?): Yes E.D. Visits: 1 - Answers: Total Score: 5 Risk of Readmission: Low Risk Care Management Discharge Reason for Hospitalization: Right Femoral Neck Fracture Discharge Plan: Desirae is discharged home via private vehicle with family. She will follow up with her community providers and discharge plan of care as precribed. New RX's are transmitted to [place]. Dr. Cummings will call Desirae to schedule a follow up appointment, No [facility] services are indicated at the time of discharge. Patient/Family Education Needs: Review discharge instructions, limitations, medications and plan to follow up with community providers. Discuss ask me three and goals of self care. Services Needed at Discharge: Outpatient Therapy
[2022-10-10] MEDS: HYDROmorphone 2 MG/ML SYR IVP (14:39)
[2022-10-10] MEDS: Normal Saline Flush 10 ML SYR IVP ×2 (14:39→17:32)
--- NOTE | 2022-10-10 15:11 | W.ANESPOSTOP ---
Postoperative Evaluation Date, Time and Location Date Performed: 10/10/22 Time Performed: 15:11 Patient Location: PACU Vital Signs Most Recent Imported Vital Signs: Most Recent Vital Signs Temp Pulse Resp BP Pulse Ox 36.5 C 56 L 15 93/45 L 97 10/10/22 15:05 10/10/22 15:05 10/10/22 15:05 10/10/22 15:05 10/10/22 15:05 Pain Score Most Recent Pain Score: Most Recent Pain Score Pain Level [Right Hip Bone] 3 10/10/22 08:30 Pain Level 4 10/10/22 15:05 Assessment Mental Status: Awake (Alert & Oriented to Patient Baseline) Airway and Respiratory Function: Patent airway with normal (patient baseline) respiratory exam Cardiovascular Function: Hemodynamically Stable Hydration Status: Adequately Hydrated Nausea & Vomiting: No Nausea or Vomiting Pain: Pain is tolerable per patient Peripheral Nerve Block: Patient did not receive a nerve block
[2022-10-10] MEDS: oxyCODONE 5 MG TAB PO (15:39)
--- NOTE | 2022-10-10 15:50 | ROE_ITS ---
Date of service: 10/10/22 Time of Service: 13:40 Operative Note Operative Note DATE OF PROCEDURE: 10/10/22 PRE-OP DIAGNOSIS: Right Femoral Neck Fracture POST-OP DIAGNOSIS: same PROCEDURE: Right Anterior Total Hip Arthroplasty with Intraoperative Navigation and dual mobility articulation SURGEON: Adam Cummings FORGER HELPER: Enid Castle ANESTHESIA TYPE: General LMA/ETT Refer to Anesthesia Record ESTIMATED BLOOD LOSS: 400 PATHOLOGY: none sent TOURNIQUET TIME: 0 COMPLICATIONS: None Patient was transported to: PACU Patient's condition: stable Implants: 1. Depuy Bimentum Dual Mobility Acetabular Component, 51mm 2. Depuy Bimentum Dual Mobility Liner, [id number] 3. Depuy Corail Standard Collared Femoral Stem, Size 13 4. Depuy Altrx Ceramic Femoral Head, Size 28+5mm Indications: I have seen Desirae after a fall onto the right hip which resulted in a displaced subcapital femoral neck fracture. Given the displacement and her active lifestyle and young age I offered a hip replacement. I explained the risks of the procedure to include, but not limited to, bleeding, infection, pain, stiffness, fracture, damage to nerves and vessels, damage to muscles and tendons, loosening, instability, leg length inequality, need for repeat procedure, blood clot and cardiopulmonary demise. Despite these risks, Desirae elected to proceed. Findings: There is a mildly comminuted and displaced fracture about the femoral neck. A dual mobility cementless hip replacement was performed. Procedure Description: Desirae was greeted in the preoperative holding area where the correct side was identified and marked. The consent was reviewed with the patient and signed. The history and physical was updated. All questions were answered. She was taken back to the operating room. A general anesthetic was then administered. The feet were wrapped with cast padding and Coban and then placed into the boot liners and then into the boots. Care was taken to protect the sk in and make sure the heels were fully down and the boots were stable. The patient was then positioned onto the HANA table. Both legs were held in a neutral position. SCDs were applied. The patient was then slid down onto a peroneal post. Prophylactic antibiotics in the form of cefazolin were administered. 1g of Tranxemic Acid was given intravenously within 30 minutes of incision. The right leg was then prepped with Chloraprep and draped in a standard fashion. A second prep with Chloraprep was performed prior to placement of a shower-curtain type drape with Iodine impregnated skin pro tection. A timeout to confirm correct identity, side and site, procedure, allergies, anesthesia, and medical concerns was performed. An obliquely oriented incision was made starting lateral to the ASIS and running distal over the Tensor Fascia Ingrid (TFL) muscle belly toward the fibular head, approximately 10cm. The skin and soft tissue was dissected sharply, through August?s fascia, and to the fascia of the TFL. With the fascia and superior border of the IT band identified, the fascia was incised with a new knife just above any perforators from the IT band. The TFL muscle belly was bluntly dissected away from the fascia and moved laterally. The fat between TFL and rectus was identified to ensure the dissection was not within the TFL. Blunt dissection created space between abductors and the capsule and retractor was placed over the lateral femoral neck. The fibers of the rectus femoris tendon were identified and these were freed from the anterior capsule. A second cobra retractor was placed around the medial femoral neck. The TFL was further retracted laterally to show the deep fascia. Careful dissection through this layer identified three main crossing vessels of the lateral femoral circumflex. These were cauterized in multiple locations and then cut without any noticeable bleeding. The TFL was further released bluntly from the deep fascia to expose anterior hip capsule and fat the Chago orthopaedic retractor was then placed beneath the TFL and against sartorius and medial soft tissues to protect and retract the soft tissues. A T-capsulotomy was then performed starting at the superior lateral acetabulum and moving distally to the intertrochanteric ridge. These capsular flaps were tagged with a No. 1 Ethibond and elevated from within. The capsular flaps were released to the shoulder of the lateral neck and to the lesser trochanter to give excellent visualization of the proximal femur. A neck osteotomy was performed using an oscillating saw based on preoperative templates. This cut started in the shoulder and of the lateral neck and exited medially. The saw was at all times directed medially to avoid injury to the greater trochanter. Gross traction was applied to the leg and the osteotomy opened. The napkin ring of bone was removed first with a rongeur. The femoral head was removed with a corkscrew, making sure to protect the TFL on its exit. Traction was released after head removal. This was measured on the back table to determine the starting reamer size. An anterior retractor was placed over the anterior wall between capsule and labrum and attached to the Gripper retraction system. The femur was rotated to 90 degrees and medial capsule was fully released until the lesser trochanter was palpable and visible; the femur was returned to 30 degrees. A posterior retractor was placed similarly between capsule and labrum. This provided excellent visualization. The contents of the cotyloid fossa were removed with electrocautery and the labrum was removed with a knife. Acetabular reaming began with a 45mm reamer. This first reaming was directed anterior to posterior and medial to get down to the true floor. This was inspected and reamed until the true floor was reached. The anterior retractor was then released and entry and exit was provided by traction on the capsular flaps. I then reamed sequentially up to a 51mm reamer where good fit was obtained. The larger reamers were oriented based on anatomical reference of the anterior and lateral sepulveda to ensure proper abduction and anteversion. Positioning and size was confirmed with the fluoroscopy. A 51mm Depuy Bimentum dual mobility acetabular component was selected. The deep tissues were irrigated. The acetabular component was then impacted in a position of about 40-45 degrees of abduction and 15-20 degrees of anteversion, using the patient?s anatomy as the ultimate landmark. Fluoroscopy was used to confirm this. There was excellent corporate librarian of the acetabular component and the inserting handle was removed. A portion of the raquel-articular cocktail was then injected around the acetabulum into the capsule and periosteum. This cocktail consisted of 123mg of Ropivacaine, 0.25mg of Epinephrine, 0.04mg of Clonidine, and 15mg of Ketorolac, diluted to 50cc. The leg was rotated to 120 degrees. Any remaining medial capsule was released until the lesser trochanter was easily palpable. A retractor was placed medially. The lateral capsule was further released into the shoulder to allow access to the greater trochanter. A Jimenez retractor was placed over the greater trochanter which allowed the trochanter to flip in front of the capsule for excellent exposure. The leg was brought down into maximal extension and 20 degrees of adduction while ensuring there was no impingement on the acetabulum. Any remnant capsule within the trochanter was released. Piriformis and obturator externis were identified and protected. There was excellent access to the proximal femur. The lateral neck remnant was removed with a rongeur. A blunt canal probe was used to identify the canal and trajectory for later broaching. A box osteotome initiated the broach course. A small curved rasp and a curved curette were used to work laterally. Broaching then began with a size 8 Corail broach. This was inserted manually around the trochanter and into the canal before mallet blows. The broach was seated to a few millimeters below the cut level based on the neck cut and the preoperative template. Sequential broaching was continued with the Tune Cloutse pneumatic broaching device until a tight fit was obtained with good rotational control of the femur. A trial standard neck was inserted along with a +1.5 trial head. The leg was brought out of extension and adduction and then reduced with traction and internal rotation. The leg was stable anteriorly in a position of 30 degrees of extension and 90 degrees of external rotation. Fluoroscopy was used to ensure there was no fracture and the stem was seated well. Leg lengths were checked with an AP pelvis and pelvic reference points. [address] navigation system was used to confirm appropriate positioning and leg length and offset. I also utilized an alignment chad to evaluate the hip position based on the contralateral side. Once content with the desired offset and leg lengths, the leg was brought back into extension, external rotation and adduction. The periosteum and surrounding tissue was injected with remaining portion of the raquel-articular cocktail. The proximal femur was irrigated as well as the deep tissues. The Meritfuluy Corail standard collared stem, size 13, was then manually inserted into the proximal femur making sure to control rotation. It was then malleted into position with light blows, giving breaks to allow bone expansion and decrease risk of fracture. The dual mobility head construct was then assembled on the back table with the 51 x 28 mm dual mobility liner and a 28+5 mm Altrx ceramic head. Once this was assembled it was then placed onto the clean and dried trunnion and secured with an impaction onto the tapered fit. The leg was brought back out of extension and adduction and reduced with traction and internal rotation. Stability was confirmed with no shuck at 90 degrees of external rotation and 30 degrees of extension. No impingement through range of motion arc. Final x-ray images were obtained with fluoroscopy to confirm adequate positioning and no intraoperative fracture. There was some oozing during the case but without any specific active bleeding. The deep tissues were thoroughly irrigated with Surgiphor, betadine solution. This was allowed to sit in the wound for 3 minutes before being thoroughly irrigated out with normal saline. The capsule was then reapproximated with the previously placed Ethibond sutures as well as #1 Vicryl. The TFL fascia was finally closed with a No. 2 Stratafix, barbed suture. Deep tissues were then reapproximated with 0 Vicryl and a running 2-0 Vicryl. The skin was closed with a running 4-0 Monocryl in a subcuticular fashion. This was reinforced with skin glue. A Mepilex silver dressing was applied. At the end of the case, all counts were correct. Desirae was transferred to the hospital bed without difficulty and suffering no apparent complication. She has a good prognosis. Physical therapy will start today and without restrictions, weight-bearing as tolerated. Aspirin 81mg BID will be used for DVT prophylaxis.
--- NOTE | 2022-10-10 16:23 | PT.INIE ---
Date of service: 10/10/22 Time of Service: 16:23 PT Notes Visit Reasons: Right Femoral Neck Fracture Physical Therapy Inpatient Initial Evaluation Date: 10/10/2022 Referring Doctor: Adam Cummings MD PT Orders: PT CONSULT: S/P Ortho Surgery Precautions: Fall. Standard. WBAT on right LE with AD Patient Profile/Admitting Diagnosis: Maria C is a 67-year-old female who sustained a right femoral neck fracture due to a fall. She is status post right anterior total hip arthroplasty on postoperative day 0. PMHX: All Active Problems?(Updated 10/10/22 @ 07:51 by Adam Cummings MD) Subcapital fracture of neck of right femur (Acute) Social History/Home Situation: Lives with in a private home with 3 steps to enter with rails on both sides. They have a flight of steps to the bedroom with a rail on one side and a wall that she can hold onto on the other side. Equipment Owned/DME: [employer] Subjective: Reports 1/10 pain in the right hip at rest and with movement. States that her BP is ussually low. Objective: General Observation: Supine in bed. IV access and left UE. Mental Status: Alert and oriented as to person, place, time, and purpose. Able to pay attention, focus, and respond appropriately. Pain: 1/10 in right hip Vital Signs: WNL as monitored by nursing staff ROM: Right Lower Extremity: Hip flexion WFL. Hip abduction WFL. Knee flexion WFL. Ankle dorsiflexion WFL. Ankle plantarflexion WFL. Left Lower Extremity: Hip flexion WFL. Hip abduction WFL. Knee flexion WFL. Ankle dorsiflexion WFL. Ankle plantarflexion WFL. Strength: Right Lower Extremity: Hip flexors 4/5. Hip abductors 4/5. Knee flexors 5/5. Knee extensors 5/5. Ankle dorsiflexors 5/5. Ankle plantarflexors 5/5. Left Lower Extremity: Hip flexors 5/5. Hip abductors 5/5. Knee flexors 5/5. Knee extensors 5/5. Ankle dorsiflexors 5/5. Ankle plantarflexors 5/5. Bed Mobility/Transfers: Rolling with independent Supine to sit standby assist Sit to supine stand by assist Sit to stand stand by assist Stand to sit stand by assist Bed to toilet seat standby assist Toilet seat to bed standby assist Bed to reclining chair standby assist Reclining chair to bed standby assist Gait: Instructed patient with level surface ambulation of 50 feet + 100 feet requiring stand by assist using FWW. No loss of balance. No shortness of breath. Denies headache, chest pain, and lightheadedness throughout activity. Stairs: Completed 6 x 4 inch steps and 4 x 6 inch steps while holding onto bilateral rails with step to gait pattern requiring only standby assist with report of no increase in pain. Balance: Static Sitting: Normal Dynamic Sitting: Normal Static Standing: Fair Dynamic Standing: Fair Special Tests: Mobility Limitations Standard[facility] Basic Mobility Inpatient Short Form: Raw Score: 24 CMS Score: 0% deficit Informed Consent/Education: Patient was instructed in purpose of PT consult and plan of care. Agreeable to proceed with established PT POC to achieve personal goals. Assessment: Patient requires the use of a front wheeled walker for mobility ADL performance in order to maximize independence and reduce fall risk. Patient presents with clinical signs and symptoms consistent with current/admitting diagnoses that have resulted to mobility limitations, gait instability, generalized weakness, and overall ADL decline as demonstrated by the following impairment level findings: 1. Decreased strength to R hip major muscle groups Impairments are contributing to the following functional limitations: 1. Difficulty with ambulation without assistive device 2. Increased completion time for mobility ADL performance Patient is assessed as a 55591 moderate complexity based on the following: History: 67 [id number] with past medical history as indicated above Examination: Demonstrable impairment in strength, balance, and mobility level with underlying impairments and functional limitations as exhibited above as well as deficit score of 0% utilizing the [facility] Mobility Inpatient Short Form Presentation: Evolving Decision Makin moderate complexity Goals: N/A. PT evaluation and 1 treatment session only for functional mobility training and HEP instruction. Plan of Care/Treatment Plan: N/A. PT evaluation and 1 treatment session only for functional mobility training and HEP instruction. DISCHARGE RECOMMENDATIONS: [] Home with no services [] [] Home with services [specify] [X] Home with outpatient PT. Home when medically cleared by orthopedic surgeon. Recommend outpatient PT services in order to optimize functional mobility outcomes and facilitate return to independent community ambulation without an assistive device [] SNF for continued rehabilitation [] [] Long-Term Care [] [] SNF versus LTC based on ability to participate and progress [] TREATMENT CODE/TIME: 971 2 x 20 minutes, 47735 x 20 minutes beginning at 16:23 PM. Thank you for the opportunity to participate in the care of this patient. Marcy Cabrera PT, DPT, CLT [facility] [place], [place]
--- NOTE | 2022-10-10 17:01 | CHAPLAIN ---
I had a brief visit with Desirae. She was very pleasant and easily engaged in a conversation. Her was visiting with her. She said she is doing well and has received good care.
[2022-10-10] MEDS: ceFAZolin 1 GM/50 ML BAG IVPB (17:31)
--- NOTE | 2022-10-11 07:35 | NUR.NOTE ---
Nursing Note: Accessed patient chart to determine how many EKG orders were in the chart from the ED. There was an outstanding EKG in ordered status. There are no EKG's in the [employer] system that are outstanding. EKG order was deleted.
== END 2022-10-10 18:26 | disposition home or self-care (01) | DRG 522 ==
LOC: ER 18:06 → ICU 18:29 → MS 10-10 11:36
PROVIDERS: Admitting Provider Student in an Organized Health Care Education/Training Program; Emergency Provider Emergency Medicine; Visit Provider Student in an Organized Health Care Education/Training Program
PROC: 0SR904A Replacement of Right Hip Joint with Ceramic on Polyethylene Synthetic Substitute, Uncemented, Open Approach (ICD-10-PCS; CPT 27130; principal; 2022-10-10 11:00)
DX: S72.011A Unspecified intracapsular fracture of right femur, initial encounter for closed fracture (principal); W01.0XXA Fall on same level from slipping, tripping and stumbling without subsequent striking against object, initial encounter; Z87.891 Personal history of nicotine dependence
CPT/HCPCS: 20985; 27130; 36415; 73552; 80053; 86850; 86900; 86901; 87635; 96374; 97162; 97530; 99223; 99285; 71045; 73501; 73502; 83735; 84484; 85025; J0131; J0690; J1100; J1170; J1885; J2405; J2704

== ENCOUNTER 2022-10-23 15:08 | Outpatient (CLI) | payer MEDICARE, SELFPAY ==
--- NOTE | 2022-10-23 14:30 | DI.RAD_ITS ---
Exam(s) XR HIP RT COMPLETE AP PELVIS EXAM: XR HIP RT COMPLETE AP PELVIS INDICATION: 1ST POST OP R DAVID. COMPARISON: CR,XR XR HIP RT COMPLETE AP PELVIS from 10/09/2022 XA XR HIP RT IN OR from 10/10/2022 TECHNIQUE: 2D digital imaging was performed. Three views. FINDINGS: Patient is status post placement of a right hip prosthesis. The alignment is unchanged from intraope rative images. No surrounding lucencies. DATA REPOSITORY: RADIATION DOSE DELIVERED:
== END 2022-10-23 15:09 | disposition home or self-care (01) ==
LOC: DIORS 15:08
PROVIDERS: Visit Provider Student in an Organized Health Care Education/Training Program
DX: Z47.1 Aftercare following joint replacement surgery (principal); Z96.641 Presence of right artificial hip joint
CPT/HCPCS: 73502

== ENCOUNTER 2022-10-30 02:10 | Outpatient (CLI) | payer MEDICARE, SELFPAY ==
--- NOTE | 2022-10-30 | DI.MAMMO_ITS ---
Exam(s) MAMMO SCREENING EXAM: MAMMO SCREENING CLINICAL HISTORY: SCREENING, Z12.39 TECHNIQUE: Bilateral full field digital CC and MLO mammographic images were obtained with 3D tomosyn thesis and utilizing computer aided detection (CAD). COMPARISON: Available for comparison. FINDINGS: Masses/Architectural Distortion: None seen. Microcalcifications: No suspicious pleomorphic-type are seen. Skin Thickening/Nipple Retraction: None. IMPRESSION: 1. No significant interval change with no specific features of malignancy noted. 2. Unless there is more urgent need, screening mammography is recommended, as per [employer] guidelines. BI-RADS Category 1 - Negative Breast Density - Category C - Heterogeneously dense Breast density category C or D implies that the patient has dense breast tissue. Dense breast tissue is very common and is not abnormal but dense breast tissue can make it harder to find cancer on a ma mmogram. Also, dense breast tissue may increase their breast cancer risk. This information about the result of the mammogram report was provided to the patient to raise their awareness. Use this report when you speak with the patient about their risks for breast cancer, which includes their family hist ory. At that time, you may recommend for more screening tests (Ultrasound or MRI) as they might be us eful based on their risk. A negative radiographic report should not delay biopsy if a dominant or clinically suspicious mass is present. Up to ten percent of cancers are not identified on mammography. A negative report may reinforce clinical impression. Adenosis and dense breasts may obscure an underlying neoplasm. False positive reports average 6 to 10%. Patient will receive a letter notifying them of these results.
== END 2022-10-30 02:30 ==
LOC: DI 02:10
PROVIDERS: Visit Provider Nurse Practitioner Family
DX: Z12.31 Encounter for screening mammogram for malignant neoplasm of breast (principal)
CPT/HCPCS: 77063; 77067

== ENCOUNTER → 2022-11-30 09:48 | Outpatient (BNVA) | payer MEDICARE, SELFPAY | PROVIDERS: PCP Nurse Practitioner Family; Visit Provider Student in an Organized Health Care Education/Training Program | DX: Z47.1 Aftercare following joint replacement surgery (principal); Z96.641 Presence of right artificial hip joint; R53.83 Other fatigue; R29.898 Other symptoms and signs involving the musculoskeletal system ==

== ENCOUNTER 2023-02-27 14:11 | Outpatient (CLI) | payer MEDICARE, SELFPAY ==
--- NOTE | 2023-02-27 13:15 | DI.RAD_ITS ---
Exam(s) XR SHOULDER LT COMPLETE 2+V EXAM: XR SHOULDER LT COMPLETE 2+V CLINICAL HISTORY: left shoulder pain. TECHNIQUE: 2D digital imaging was performed. COMPARISON: No exams were available for comparison FINDINGS: Two views: No evidence of fracture or dislocation. Mild narrowing of the glenohumeral joint space. No osteophy terence. Subacromial space appears unremarkable and without calcifications. Clavicle appears unremarkab le. IMPRESSION: Mild degenerative changes in the glenohumeral joint. DATA REPOSITORY: RADIATION DOSE DELIVERED:
== END 2023-02-27 14:12 | disposition home or self-care (01) ==
LOC: DIORS 14:11
PROVIDERS: PCP Nurse Practitioner Family; Referring Provider Nurse Practitioner Family; Visit Provider Student in an Organized Health Care Education/Training Program
DX: M75.102 Unspecified rotator cuff tear or rupture of left shoulder, not specified as traumatic; M75.32 Calcific tendinitis of left shoulder
CPT/HCPCS: 99213; 73030

== ENCOUNTER 2023-04-16 02:57 | Outpatient (CLI) | payer MEDICARE, SELFPAY ==
--- NOTE | 2023-04-16 08:00 | DI.MRI_ITS ---
Exam(s) MR UPPER JOINT LT WO EXAM: MR UPPER JOINT LT WO CLINICAL HISTORY: LEFT SHOULDER PAIN,LT ROTATOR CUFF TEAR, M75.102. TECHNIQUE: Multiplanar multisequence MRI was performed. COMPARISON: Plain films 27 Feb 2023, MRI [facility] 05 September 2022 FINDINGS: BONES: There is no fracture or contusion pattern. JOINTS:The acromioclavicular joint is normal. The glenohumeral joint shows mild degenerative changes and a minimal effusion. TENDONS: Supraspinatus: Full-thickness tear anterior supraspinatus tendon. Infraspinatus: Unremarkable. Subscapularis: Unremarkable. Teres Minor: Unremarkable. Biceps and [place]: Unremarkable. MUSCLES: Unremarkable. GLENOID LABRUM: No gross tear. Degenerative changes superior labrum. SOFT TISSUES: Unremarkable. OTHER: Subacromial and subdeltoid bursae show minimal fluid . IMPRESSION: Tear of the anterior supraspinatus tendon. DATA REPOSITORY:
== END 2023-04-16 03:17 ==
LOC: DI 02:58
PROVIDERS: PCP Nurse Practitioner Family; Visit Provider Student in an Organized Health Care Education/Training Program
DX: M75.122 Complete rotator cuff tear or rupture of left shoulder, not specified as traumatic (principal); M25.512 Pain in left shoulder
CPT/HCPCS: 73221

== ENCOUNTER → 2023-04-18 14:13 | Outpatient (BNVA) | payer MEDICARE, SELFPAY | PROVIDERS: PCP Nurse Practitioner Family; Referring Provider Nurse Practitioner Family; Visit Provider Student in an Organized Health Care Education/Training Program | DX: M75.102 Unspecified rotator cuff tear or rupture of left shoulder, not specified as traumatic (principal); M75.32 Calcific tendinitis of left shoulder | CPT/HCPCS: 99214 ==

== ENCOUNTER 2023-10-12 11:42 | Outpatient (CLI) | payer MEDICARE, SELFPAY ==
--- NOTE | 2023-10-12 11:30 | DI.RAD_ITS ---
Exam(s) XR HIP RT AP LAT ONLY EXAM: XR HIP RT AP LAT ONLY CLINICAL HISTORY: ANNUAL F/U R DAVID. TECHNIQUE: 2D digital imaging was performed. Two images were obtained. AP and lateral views were ob tained. COMPARISON: CR XR HIP RT COMPLETE AP PELVIS from 10/23/2022 FINDINGS: BONES: There are stable post operative changes of a right total hip replacement present. No fracture or dislocation. JOINTS: The orthopedic hardware is in good position. No evidence of hardware loosening. SOFT TISSUE: Normal. IMPRESSION: Stable postoperative changes. DATA REPOSITORY: RADIATION DOSE DELIVERED:
== END 2023-10-12 11:43 | disposition home or self-care (01) ==
LOC: DIORS 11:43
PROVIDERS: PCP Nurse Practitioner Family; Referring Provider Nurse Practitioner Family; Visit Provider Student in an Organized Health Care Education/Training Program
DX: Z47.1 Aftercare following joint replacement surgery (principal); Z96.641 Presence of right artificial hip joint; M70.61 Trochanteric bursitis, right hip
CPT/HCPCS: 99213; 73502

== ENCOUNTER 2023-11-12 14:54 | Outpatient (REF) | payer MEDICARE, SELFPAY ==
[2023-11-12 19:06] LABS: Abs Immature Grans 0.01 10^3/uL (0.0-0.06); Absolute Basophil Count 0.04 10^3/uL (0.0-0.2); Absolute Eosinophil Count 0.61 10^3/uL (0.0-0.7); Absolute Lymphocyte Count 0.83 10^3/uL (1.2-3.4); Absolute Monocyte Count 0.46 10^3/uL (0.1-0.8); Absolute Neutrophil Count 2.12 10^3/uL (1.2-6.7); HGB 13.9 g/dL (11.2-15.7); Immature Grans % 0.2; Lymphocytes % 20.4; MCH 31.2 pg (27.0-33.0); MCHC 32.3 % (32.0-36.0); MCV 97 fL (80-95); MPV 11.7 fL (8.0-11.0); Monocytes % 11.3; Neutrophils % 52.1; Platelet Count 168 10^3/uL (130-400); RBC 4.45 10^6/uL (3.93-5.22); RDW 14.5 % (11.7-14.6); RDW-SD 51.5 fL; WBC 4.07 10^3/uL (4.4-10.8)
[2023-11-12 19:26] LABS: ALT 37 U/L (14-59); AST 26 U/L (15-37); Alkaline Phosphatase 100 U/L (46-116); Anion Gap 7.7 mmol/L (3-11); BUN 10 mg/dL (7-18); Bilirubin, Total 0.4 mg/dL (0.2-1.0); CO2 29.3 mmol/L (21.0-32.0); CREATININE 0.7 mg/dL (0.55-1.02); Calculated LDL 164 mg/dL (<100); Chloride 106 mmol/L (98-107); Cholesterol 263 mg/dL (<200); Estimated GFR 93.56 (mL/min/1.73m2); Ferritin 28 ng/mL (8-252); Glucose 104 mg/dL (74-106); HDL Cholesterol 90 mg/dL (40-60); Potassium 4.5 mmol/L (3.5-5.1); Sodium 143 mmol/L (136-145); Triglyceride 49 mg/dL (<150)
[2023-11-12 19:47] LABS: Iron 62 ug/dL (50-170); Total Iron Binding Capacity 392 ug/dL (250-450); Transferrin Sat 16 % (15-50)
== END 2023-11-12 14:55 | disposition home or self-care (01) ==
LOC: NCHCN 14:54
PROVIDERS: PCP Nurse Practitioner Family; Visit Provider Nurse Practitioner Family
DX: Z13.6 Encounter for screening for cardiovascular disorders (principal)
CPT/HCPCS: 80053; 80061; 82728; 83540; 83550; 85025

== ENCOUNTER → 2023-11-23 00:16 | Outpatient (CLI) | payer MEDICARE, SELFPAY ==
--- NOTE | 2023-11-23 | DI.MAMMO_ITS ---
Exam(s) MAMMO SCREENING EXAM: MAMMO SCREENING CLINICAL HISTORY: SCREENING MAMMO FOR BREAST CANCER Z12.31.fam h/o breast ca TECHNIQUE: Bilateral full field digital CC and MLO mammographic images were obtained with 3D tomosyn thesis and utilizing computer aided detection (CAD). COMPARISON: Available for comparison. FINDINGS: Masses/Architectural Distortion: None seen. Microcalcifications: No suspicious pleomorphic-type are seen. Skin Thickening/Nipple Retraction: None. IMPRESSION: 1. No significant interval change with no specific features of malignancy noted. 2. Unless there is more urgent need, screening mammography is recommended, as per [employer] guidelines. BI-RADS Category 1 - Negative Breast Density - Category C - Heterogeneously dense Breast density category C or D implies that the patient has dense breast tissue. Dense breast tissue is very common and is not abnormal but dense breast tissue can make it harder to find cancer on a ma mmogram. Also, dense breast tissue may increase their breast cancer risk. This information about the result of the mammogram report was provided to the patient to raise their awareness. Use this report when you speak with the patient about their risks for breast cancer, which includes their family hist ory. At that time, you may recommend for more screening tests (Ultrasound or MRI) as they might be us eful based on their risk. A negative radiographic report should not delay biopsy if a dominant or clinically suspicious mass is present. Up to ten percent of cancers are not identified on mammography. A negative report may reinforce clinical impression. Adenosis and dense breasts may obscure an underlying neoplasm. False positive reports average 6 to 10%. Patient will receive a letter notifying them of these results.
== END ==
PROVIDERS: PCP Nurse Practitioner Family; Visit Provider Nurse Practitioner Family
DX: Z12.31 Encounter for screening mammogram for malignant neoplasm of breast (principal)
CPT/HCPCS: 77063; 77067

== ENCOUNTER → 2024-04-28 01:03 | Outpatient (CLI) | payer MEDICARE, SELFPAY ==
--- NOTE | 2024-04-28 13:40 | DI.RAD_ITS ---
Exam(s) XR FOOT LT COMPLETE EXAM: XR FOOT LT COMPLETE CLINICAL HISTORY: Left foot pain,M79.672. TECHNIQUE: 2D digital imaging was performed. Three views. COMPARISON: No exams were available for comparison FINDINGS: BONES: No acute fracture is present. No bony destructive lesion is seen. JOINTS: No dislocation present. Mild hallux valgus. Prominence of the 1st metatarsal head. SOFT TISSUE: Normal. IMPRESSION: Mild hallux valgus. DATA REPOSITORY: RADIATION DOSE DELIVERED:
== END ==
PROVIDERS: Visit Provider Podiatrist
DX: M79.672 Pain in left foot (principal); M20.12 Hallux valgus (acquired), left foot
CPT/HCPCS: 29540; 73630

== ENCOUNTER → 2024-05-22 13:49 | Outpatient (BNVA) | payer MEDICARE, SELFPAY | PROVIDERS: PCP Nurse Practitioner Family; Referring Provider Nurse Practitioner Family; Visit Provider Podiatrist | DX: M79.672 Pain in left foot (principal); M77.42 Metatarsalgia, left foot; M67.02 Short Achilles tendon (acquired), left ankle; R20.2 Paresthesia of skin | CPT/HCPCS: 29540 ==

== ENCOUNTER → 2024-06-12 13:48 | Outpatient (BNVA) | payer MEDICARE, SELFPAY | PROVIDERS: PCP Nurse Practitioner Family; Referring Provider Nurse Practitioner Family; Visit Provider Podiatrist | DX: M77.42 Metatarsalgia, left foot; M67.02 Short Achilles tendon (acquired), left ankle; R20.2 Paresthesia of skin; G62.9 Polyneuropathy, unspecified | CPT/HCPCS: 99214 ==

== ENCOUNTER 2025-02-11 01:55 | Outpatient (CLI) | payer MEDICARE, SELFPAY ==
--- NOTE | 2025-02-11 09:55 | DI.MAMMO_ITS ---
Exam(s) MAMMO SCREENING EXAM: MAMMO SCREENING CLINICAL HISTORY: SCREENING,Z12.31,FAMILY H/O BREAST CA TECHNIQUE: Bilateral full field digital CC and MLO mammographic images were obtained with 3D tomosyn thesis and utilizing computer aided detection (CAD). COMPARISON: Available for comparison. FINDINGS: Masses/Architectural Distortion: No suspicious masses or areas of architectural distortion are presen t. Microcalcifications: No suspicious pleomorphic-type are seen. Skin Thickening/Nipple Retraction: None. IMPRESSION: 1. No significant interval change with no specific features of malignancy noted. 2. Unless there is more urgent need, screening mammography is recommended, as per [employer] guidelines. BI-RADS Category 1 - Negative Breast Density - Category C - The breast are heterogeneously dense, which may obscure small masses. Breast density Category C or D implies that the patient has dense breast tissue. Dense breast tissue can make it harder to find cancer on a mammogram. Dense breast tissue is also associated with an incr eased risk of breast cancer. This information about the result of the mammogram report was provided to the patient to raise their awareness. Use this report when you speak with the patient about their risks for breast cancer, which includes their family history. At that time, you may recommend additional screening tests (Ultrasoun d or MRI) as these tests may add significant information. A negative radiographic report should not delay biopsy if a dominant or clinically suspicious mass is present. Up to ten percent of cancers are not identified on mammography. A negative report may reinforce clinical impression. Adenosis and dense breasts may obscure an underlying neoplasm. False positive reports average 6 to 10%. Patient will receive a letter notifying them of these results.
== END 2025-02-11 02:15 ==
LOC: DI 01:55
PROVIDERS: PCP Nurse Practitioner Family; Visit Provider Nurse Practitioner Family
DX: Z12.31 Encounter for screening mammogram for malignant neoplasm of breast (principal); R92.333 Mammographic heterogeneous density, bilateral breasts
CPT/HCPCS: 77063; 77067

== ENCOUNTER 2025-02-12 10:06 | Outpatient (REF) | payer MEDICARE, SELFPAY ==
[2025-02-12 16:06] LABS: ALT 36 U/L (14-59); AST 27 U/L (15-37); Albumin 3.8 g/dL (3.4-5.0); Alkaline Phosphatase 84 U/L (46-116); Anion Gap 6.3 mmol/L (3-11); BUN 11 mg/dL (7-18); Bilirubin, Total 0.5 mg/dL (0.2-1.0); CO2 27.7 mmol/L (21.0-32.0); CREATININE 0.7 mg/dL (0.55-1.02); Calcium 8.7 mg/dL (8.5-10.1); Calculated LDL 187 mg/dL (<100); Chloride 106 mmol/L (98-107); Cholesterol 285 mg/dL (<200); Estimated GFR 92.98 (mL/min/1.73m2); Glucose 94 mg/dL (74-106); HDL Cholesterol 92 mg/dL (>or=50); Potassium 4.3 mmol/L (3.5-5.1); Sodium 140 mmol/L (136-145); Total Protein 6.7 g/dL (6.4-8.2); Triglyceride 34 mg/dL (<150); Vitamin D 25 Total 42 ng/mL (30-100)
== END 2025-02-12 10:07 | disposition home or self-care (01) ==
LOC: NCHCN 10:06
PROVIDERS: PCP Nurse Practitioner Family; Visit Provider Nurse Practitioner Family
DX: Z00.00 Encounter for general adult medical examination without abnormal findings (principal); M19.90 Unspecified osteoarthritis, unspecified site
CPT/HCPCS: 80053; 80061; 82306

== ENCOUNTER 2025-02-27 00:26 | Outpatient (CLI) | payer MEDICARE, SELFPAY ==
--- NOTE | 2025-02-27 | DI.DEXA_ITS ---
Exam(s) XR DEXA BONE DENSITY W/WO ADAM EXAM: XR DEXA BONE DENSITY W/WO ADAM CLINICAL HISTORY: M81.0 Age-related osteoporosis w/o current pathological fracture TECHNIQUE: Routine DEXA evaluation of the lumbar spine, hip, or forearm. COMPARISON: No exams were available for comparison FINDINGS: Performed on a Hologic unit. Lateral image: No compression fracture evident. Lumbar Spine total T-score: -1.5 which is osteopenia range. Hip total T-score:-1.8 which is osteopenia range Independent reading at the level of the femoral neck yields T-score of -2.7 which is osteoporosis ra nge Forearm total T-score: -3.1 which is osteoporosis range. IMPRESSION: Bone mineral density measures in the osteoporosis range for the wrist-forearm and femoral neck.. Fra cture risk is high. Bone mineral density measures in osteopenia range for the lumbar spine; fracture risk is moderate. Note: Any spine fracture indicates 5x risk for subsequent spine fracture and 2x risk for subsequent h ip fracture. World Health Organization criteria for BMD interpretation classify patients: Normal...... T- Score at or above -1.0 Osteopenic... T- Score between -1.0 and -2.5 Osteoporosis... T-Score at or below -2.5
== END 2025-02-27 00:46 ==
PROVIDERS: PCP Nurse Practitioner Family; Visit Provider Nurse Practitioner Family
DX: M81.0 Age-related osteoporosis without current pathological fracture (principal)
CPT/HCPCS: 77080